=== PATIENT | female | born 1960 | race Caucasian/White ===

== ENCOUNTER → 2018-05-06 07:16 | Outpatient (CLI) | payer OTHER, SELFPAY ==
[2018-05-06 10:15] LABS: BUN Creatinine Ratio 18.6 (6-22); Blood Urea Nitrogen 13 mg/dL (7-17); Carbon Dioxide 28 mmol/L (22-32); Chloride 103 mmol/L (98-107); Estimated Glomerular Filt Rate > 60.0 mL/min (>60); Glucose 100 mg/dL (70-100); HEMOLYSIS < 15 (0-50); Sodium 141 mmol/L (137-145)
[2018-05-06 10:20] LABS: Hemoglobin A1C% w Est Avg Glu 5.5 % (4.0-6.0)
== END ==
PROVIDERS: Family Provider Internal Medicine; PCP Internal Medicine; Visit Provider Internal Medicine
DX: R73.9 Hyperglycemia, unspecified (principal)
CPT/HCPCS: 36415; 80048; 83036

== ENCOUNTER → 2018-05-28 16:36 | Outpatient (CLI) | payer OTHER, SELFPAY ==
--- NOTE | 2018-05-28 16:38 | DI.RAD.S_ITS ---
PROCEDURE: XR CHEST 2V INDICATIONS: chest wall pain, right angle of [place] TECHNIQUE: 2 views of the chest were acquired. COMPARISON: [facility], CR, XR CHEST 2 VIEWS, 01/30/2018, 7:16. [facility], CR, CHEST 2 VIEW, 06/25/2011, 10:15. FINDINGS: Surgical changes and devices: Sternotomy wire wires, presumed prior CABG. These are stable over time. Lungs and pleura: No pleural effusions or pneumothorax. Lungs are clear. Mediastinum: Mediastinal contours are normal. Heart size is normal. Bones and chest wall: No suspicious bony abnormalities. Soft tissues appear unremarkable. IMPRESSION: Prior CABG, source of chest pain is not identified. Dictated by: Angel Morales M.D. on 05/29/2018 at 9:45 Approved by: Angel Morales M.D. on 05/29/2018 at 10:35
== END ==
PROVIDERS: Family Provider Internal Medicine; PCP Internal Medicine; Visit Provider Internal Medicine
DX: R07.89 Other chest pain (principal); Z95.1 Presence of aortocoronary bypass graft
CPT/HCPCS: 71046

== ENCOUNTER 2018-07-23 08:04 | Emergency (ER) | payer OTHER, SELFPAY ==
--- NOTE | 2018-07-23 08:05 | ED_ITS ---
HPI - Abdominal Pain General Chief Complaint: Abdominal Pain Stated Complaint: stomach is killing me. feels like pancreatitis Time Seen by Provider: 07/23/18 08:05 Source: patient Mode of arrival: ambulatory Limitations: no limitations History of Present Illness HPI narrative: patient is a 58-year-old female here for evaluation of epigastric pain. Patient states that has been going on for the past 2 days. Has been constant for the past 2 days. States that it is worse with walking around and somewhat worse with eating. Not worse with palpation. She has had a history of pancreatitis in the past. She states that during her last episode of pancreatitis she did have her gallbladder removed. She states that this is in a slightly different location than her previous history of pancreatitis but she states it feels much like her previous episode. Denies alcohol use. Denies chest pain. Denies shortness of breath. Has not tried anything for this prior to arrival. Related Data Home Medications Medication Instructions Recorded Confirmed ACETAMINOPHEN 325 mg PO Q4HP #0 10/08/12 07/23/18 aspirin 81 mg PO DAILY 07/23/18 07/23/18 Previous Rx's Medication Instructions Recorded atorvastatin 40 mg PO QDAY #90 tab 04/17/17 metoprolol succinate [Toprol XL] 25 mg PO QDAY #90 ter 11/24/17 valsartan [Diovan] 80 mg PO QDAY #90 tab 12/30/17 omeprazole 20 mg capsule,delayed 20 mg PO DAILY #90 cap 02/16/18 release losartan 50 mg tablet 50 mg PO DAILY #30 tab 05/12/18 Allergies Allergy/AdvReac Type Severity Reaction Status Date / Time pollen extracts Allergy Unknown rash Verified 07/23/18 08:10 [POLLEN EXTRACTS] around eyelids. Iodinated Contrast- Oral and Allergy Verified 07/23/18 10:24 IV Dye erythromycin base AdvReac Intermediate gi upset Verified 07/23/18 08:10 [ERYTHROMYCIN BASE] etodolac [ETODOLAC] AdvReac Intermediate welts Verified 07/23/18 08:10 enalapril [ENALAPRIL] AdvReac Mild Verified 07/23/18 08:10 Review of Systems Constitutional Denies fever(s) Cardiovascular Denies chest pain and Denies dyspnea Respiratory Denies dyspnea Gastrointestinal Gastrointestinal: Reports abdominal pain, Denies change in bowel habits, Denies constipation, Denies diarrhea, Denies nausea and Denies vomiting Genitourinary Denies dysuria Musculoskeletal Denies myalgias and Denies arthralgias Integumentary/Breasts Denies rash Hematologic/Lymphatic Denies easy bleeding PFS Medical History Essential hypertension (Chronic 06/13/11) Coronary artery disease involving shawnee coronary artery of shawnee heart without angina pectoris (Chronic 10/06/15) Impaired glucose tolerance (Chronic) Obstructive sleep apnea (Chronic) Rosacea (Chronic) Chronic back pain (Chronic 1993) History of two vessel coronary artery bypass graft (Inactive 12/28/15) Moderate single current episode of major depressive disorder (Chronic 02/20/16) Body mass index (BMI) of 40.1 to 44.9 in adult (Chronic 04/17/17) Chicken pox (Resolved) Cubital tunnel syndrome (Resolved 2008) Hemorrhoids (Resolved 1983) History of recurrent ear infection (Resolved ~1964) Measles (Resolved) Menopause (Resolved 2009) Painful menstrual periods (Resolved 1984) Polyp of gallbladder (Resolved) Recurrent sinusitis (Resolved 1977) Ruptured tympanic membrane (Resolved 1980) Surgical History Anesthesia (Resolved) History of angioplasty (Resolved 10/03/15) History of shoulder surgery (Resolved 1998) History of shoulder surgery (Resolved 2004) History of tonsillectomy (Resolved 1969) S/P cubital tunnel release (Resolved 2008) Status post cholecystectomy (Resolved 2016) Status post coronary artery bypass graft (Resolved 10/2015) Status post tubal ligation (Resolved 1988) Family History Brother Age: 60 Hypertension High cholesterol Grandfather Colon cancer Grandmother Heart disease Hypertension Kidney failure Mother Age: 74 Family history of colon cancer Hypertension Arthritis Frail elderly Sister Age: 57 Hypertension Family/Other Ovarian cancer Father COPD (chronic obstructive pulmonary disease) Social History marital status: number of children: 3 household members: spouse lives independently: Yes caregiver/support person: No housing: house pets and animals: Yes education level: college ([employer].) occupational status: employed (E[employer].) current occupational exposures/hazards: No vidal/denominational: Evangelical travel history: recent ([place]) leisure activities: art (Crafting) and other (Sewing, gardening, camping) Smoking Status: Former smoker Tobacco: How many years used: 35 Smokeless tobacco user: other (Cigarettes) quit status: quit date established (2015) second hand exposure: No alcohol intake: current (Occasional, Social) substance use type: does not use Exam Initial Vital Signs Initial Vital Signs: Vital Signs Temperature 97.5 F L 07/23/18 08:11 Pulse Rate 88 07/23/18 08:11 Respiratory Rate 16 07/23/18 08:11 Blood Pressure 152/67 H 07/23/18 08:11 Pulse Oximetry 96 07/23/18 08:11 Const General: cooperative, well developed, well groomed and No acute distress Orientation: alert, awake and oriented x3 HENMT Head: normal to inspection and normocephalic Chest Chest: normal inspection of the chest Other: Well-healed midline surgical scar consistent with her stated history of coronary artery bypass graft Resp Effort & Inspection: normal respiratory effort Auscultation: clear to auscultation bilaterally Cardio Rate: regular rate Rhythm: regular rhythm Pulses: radial pulses present GI Inspection: non-distended Palpation: soft, No firm, No guarding, No rigid and tender ( epigastric region) Skin Lesions: no lesions Rashes: no rashes Neuro General: alert, awake and oriented x3 Speech: speech normal Extrem General: normal to inspection and capillary refill normal Psych Appearance: grossly normal and well kempt Course Orders Ordered: ED Orders 07/23/18 08:14 EKG-12 Lead Stat 07/23/18 08:30 Complete Blood Count AUTO DIFF Stat Comprehensive Metabolic Panel Stat Lipase Stat Troponin I Stat 07/23/18 09:37 CT abdomen pelvis wo con Stat Discontinued Medications Acetaminophen (Tylenol) 650 mg PO NOW ONE Stop: 07/23/18 08:41 Last Admin: 07/23/18 08:48 Dose: 650 mg Sodium Chloride (Normal Saline 0.9%) 1,000 mls @ 1,000 mls/hr IV BOLUS ONE Stop: 07/23/18 09:04 Last Admin: 07/23/18 08:48 Dose: 1,000 mls/hr Vital Signs - 8 hr 07/23/18 08:11 07/23/18 08:43 Temperature 97.5 F L Pulse Rate 88 80 Respiratory Rate 16 16 Blood Pressure 152/67 H Blood Pressure [Left Arm] 134/75 Pulse Oximetry 96 92 MDM - Abdominal Pain Lab Data Attestation: I reviewed the patient's lab results. Result diagrams: 07/23/18 08:30 07/23/18 08:30 Lab Results 07/23/18 07/23/18 Range/Units 08:30 08:30 WBC 8.8 (4.5-11.0) X10^3/uL RBC 5.24 H (4.0-5.2) X10^6/uL Hgb 14.9 (12.0-16.0) g/dL Hct 43.5 (36-46) % MCV 82.9 (80-100) fL MCH 28.5 (26-34) PG MCHC 34.4 (30-36) % RDW 14.0 (11.6-14.8) % Plt Count 261 (150-400) X10^3/uL Neut % (Auto) 71.6 (50-75) % Lymph % (Auto) 20.0 L (25-40) % [place] % (Auto) 5.5 (3-14) % Eos % (Auto) 1.6 L (2-4) % Baso % (Auto) 1.3 (0-2) % Neut # (Auto) 6300 H (7764-3676) /uL Sodium 144 (137-145) mmol/L Potassium 4.1 (3.4-5.1) mmol/L Chloride 104 (98-107) mmol/L Carbon Dioxide 29 (22-32) mmol/L BUN 14 (7-17) mg/dL Creatinine 0.70 (0.52-1.04) mg/dL Estimated GFR > 60.0 (>60) mL/min BUN/Creatinine Ratio 20.0 (6-22) Glucose 108 H (70-100) mg/dL Calcium 9.3 (8.4-10.2) mg/dL Total Bilirubin 0.4 (0.2-1.3) mg/dL AST 22 (14-36) IU/L ALT 30 (9-52) IU/L Alkaline Phosphatase 96 (38-126) U/L Troponin I < 0.012 (0.01-0.034) ng/mL Total Protein 7.1 (6.3-8.2) g/dL Albumin 4.1 (3.5-5.0) g/dL Globulin 3.0 (1.7-4.1) g/dL Albumin/Globulin Ratio 1.4 (1.0-2.8) Lipase 132 (23-300) U/L Imaging Data CT scan - abdomen: Radiologist's impression: PROCEDURE: CT ABDOMEN PELVIS WO CON INDICATIONS: epigastric pain TECHNIQUE: Noncontrast 5 mm thick sections acquired from the diaphragms to the symphysis. 5 mm coronal and sagittal reformats were then performed. For radiation dose reduction, the following was used: automated exposure control, adjustment of mA and/or kV according to patient size. COMPARISON: None. FINDINGS: Image quality: Reduced by absence of both oral and intravenous contrast. ABDOMEN: Lung bases: Lung bases are clear. Heart size is normal. Solid organs: Liver is normal in size. Gallbladder is not seen and may have been previously resected. Pancreas is normal in contours. Spleen is normal in size. No adrenal nodules. Kidneys are normal in size, without hydronephrosis or nephrolithiasis. Peritoneum and bowel: Unenhanced bowel loops demonstrate normal wall thickness and caliber. No free fluid or air. Nodes and vessels: No retroperitoneal or mesenteric adenopathy by size criteria. Aorta and inferior vena cava are normal in caliber. Miscellaneous: No ventral hernias. PELVIS: Genitourinary: Bladder wall thickness is normal. Miscellaneous: No inguinal hernias or adenopathy. Bones: No suspicious bony lesions. No vertebral body compression fractures. IMPRESSION: The source of reported epigastric pain is not identified. No inflammation in this area is found. The gallbladder is not visualized, and may have been previously resected although metallic surgical clips at the gallbladder fossa area are not seen. Dictated by: Angel Morales M.D. on 07/23/2018 at 9:52 Approved by: Angel Morales M.D. on 07/23/2018 at 9:53 ECG Data Attestation: I personally reviewed and interpreted this ECG as follows: Prior ECG tracings: not available for review Interpretation: sinus rhythm ventricular rate 80 for normal axis Normal QRS Will QTC No ST T wave changes MDM Narrative Medical decision making narrative: Patient has a normal EKG. Symptoms that have been constant for 2 days and a negative troponin. Doubt ACS. CT scan of the abdomen unremarkable. Lipase was unremarkable. Patient does not have a gallbladder. She did not want a GI cocktail here in the emergency department. She stated that when she was in the CT scanner when she raises her arms above her head it did reproduce the symptoms when her arms were down the symptoms seemed to improve. She also stated that the symptoms worsened this morning when she took her pills and also when she took Tylenol here in the ER. I do suspect a GI etiology based on these symptoms. She is currently on Prilosec. We did discuss that she could start taking Tums /Maalox by at least 45 min from her Prilosec if needed. She does have a follow-up with her primary care doctor already scheduled for next month. She was given return precautions. She expressed understanding and agreement with plan. Discharge Plan Departure Patient Disposition: Home Clinical Impression: Abdominal pain Instructions: DI for Abdominal Pain-Adult Activity Restrictions/Additional Instructions: continue taking your medications likely discussed. I would recommend you start taking Tums /Maalox like we discussed by at least 45 min from the Prilosec. Return to the emergency department for any new or worsening symptoms Prescriptions: No Action ACETAMINOPHEN 325 mg PO Q4HP Qty: 0 RF: 0 atorvastatin 40 MG tablet 40 mg PO QDAY Qty: 90 RF: 3 metoprolol succinate [Toprol XL] 25 MG tablet extended release 24 hr 25 mg PO QDAY Qty: 90 RF: 3 valsartan [Diovan] 80 MG tablet 80 mg PO QDAY Qty: 90 RF: 3 omeprazole 20 mg capsule,delayed release(DR/EC) 20 mg PO DAILY Qty: 90 RF: 3 losartan 50 mg tablet 50 mg PO DAILY Qty: 30 RF: 3 aspirin 81 mg Tablet,Delayed Release (Dr/Ec) 81 mg PO DAILY RF: 0
[2018-07-23 08:11] VITALS: BP 152/67; PULSE 88; RESP 16; TEMP 36.4; O2SAT 96; BMI 39.1
[2018-07-23 08:43] VITALS: BP 134/75; PULSE 80; RESP 16; O2SAT 92
--- NOTE | 2018-07-23 08:45 | PC.NURSE ---
pt reports, recovering from right shoulder strained a week ago, developed right rib area pain for 2 days, hard to breath due to pain, felt heavy, like rocks, pain radiating between her shoulder blade
[2018-07-23 08:47] LABS: Add Manual Diff / Slide Review NO; Basophils Percent Auto 1.3 % (0-2); Eosinophils Percent Auto 1.6 % (2-4); Hematocrit 43.5 % (36-46); Hemoglobin 14.9 g/dL (12.0-16.0); Mean Corpuscular HGB Conc 34.4 % (30-36); Mean Corpuscular Hemoglobin 28.5 PG (26-34); Mean Corpuscular Volume 82.9 fL (80-100); Monocytes Percent Auto 5.5 % (3-14); Neutrophils Absolute Auto 6300 /uL (3000-5900); Neutrophils Percent Auto 71.6 % (50-75); Platelet Count 261 X10^3/uL (150-400); Red Blood Cell Count 5.24 X10^6/uL (4.0-5.2); White Blood Cell Count 8.8 X10^3/uL (4.5-11.0)
[2018-07-23] MEDS: ACETAMINOPHEN 325 MG TABLET 650 MG PO (08:48)
[2018-07-23] MEDS: SODIUM CHLORIDE 0.9% 1,000 ML 1000 ML IV (08:48)
[2018-07-23 08:57] LABS: Alanine Aminotransferase 30 IU/L (9-52); Albumin 4.1 g/dL (3.5-5.0); Albumin Globulin Ratio 1.4 (1.0-2.8); Alkaline Phosphatase 96 U/L (38-126); Aspartate Aminotransferase 22 IU/L (14-36); Bilirubin Total 0.4 mg/dL (0.2-1.3); Blood Urea Nitrogen 14 mg/dL (7-17); Calcium 9.3 mg/dL (8.4-10.2); Carbon Dioxide 29 mmol/L (22-32); Chloride 104 mmol/L (98-107); Estimated Glomerular Filt Rate > 60.0 mL/min (>60); Glucose 108 mg/dL (70-100); HEMOLYSIS < 15 (0-50); Lipase 132 U/L (23-300); Potassium 4.1 mmol/L (3.4-5.1); Sodium 144 mmol/L (137-145); Total Protein 7.1 g/dL (6.3-8.2)
[2018-07-23 09:00] VITALS: BP 122/67; PULSE 74; RESP 16; O2SAT 96
[2018-07-23 09:10] LABS: Troponin I < 0.012 ng/mL (0.01-0.034)
--- NOTE | 2018-07-23 09:37 | DI.CT.S_ITS ---
PROCEDURE: CT ABDOMEN PELVIS WO CON INDICATIONS: epigastric pain TECHNIQUE: Noncontrast 5 mm thick sections acquired from the diaphragms to the symphysis. 5 mm coronal and sagittal reformats were then performed. For radiation dose reduction, the following was used: automated exposure control, adjustment of mA and/or kV according to patient size. COMPARISON: None. FINDINGS: Image quality: Reduced by absence of both oral and intravenous contrast. ABDOMEN: Lung bases: Lung bases are clear. Heart size is normal. Solid organs: Liver is normal in size. Gallbladder is not seen and may have been previously resected. Pancreas is normal in contours. Spleen is normal in size. No adrenal nodules. Kidneys are normal in size, without hydronephrosis or nephrolithiasis. Peritoneum and bowel: Unenhanced bowel loops demonstrate normal wall thickness and caliber. No free fluid or air. Nodes and vessels: No retroperitoneal or mesenteric adenopathy by size criteria. Aorta and inferior vena cava are normal in caliber. Miscellaneous: No ventral hernias. PELVIS: Genitourinary: Bladder wall thickness is normal. Miscellaneous: No inguinal hernias or adenopathy. Bones: No suspicious bony lesions. No vertebral body compression fractures. IMPRESSION: The source of reported epigastric pain is not identified. No inflammation in this area is found. The gallbladder is not visualized, and may have been previously resected although metallic surgical clips at the gallbladder fossa area are not seen. Dictated by: Angel Morales M.D. on 07/23/2018 at 9:52 Approved by: Angel Morales M.D. on 07/23/2018 at 9:53
--- NOTE | 2018-07-23 10:04 | PC.NURSE ---
pt reports, pain worsen with movement.
[2018-07-23 10:45] VITALS: BP 117/88; PULSE 69; RESP 16; O2SAT 96
== END 2018-07-23 10:58 | disposition home or self-care (01) ==
PROVIDERS: Emergency Provider Emergency Medicine; PCP Internal Medicine
DX: R10.9 Unspecified abdominal pain (principal)
CPT/HCPCS: 36591; 74176; 80053; 83690; 84484; 85025; 93005; 93010; 96360; 96361; 99283; 99285

== ENCOUNTER → 2018-08-12 06:58 | Outpatient (CLI) | payer OTHER, SELFPAY ==
[2018-08-12 09:46] LABS: Cholesterol 138 mg/dL (140-199); HDL Cholesterol 35 mg/dL (40-60); Hemoglobin A1C% w Est Avg Glu 5.4 % (4.0-6.0); LDL Cholesterol Calculated 75 mg/dL (<100); Triglycerides 142 mg/dL (35-150)
== END ==
PROVIDERS: PCP Internal Medicine; Visit Provider Internal Medicine
DX: I25.10 Atherosclerotic heart disease of native coronary artery without angina pectoris (principal); R73.02 Impaired glucose tolerance (oral)
CPT/HCPCS: 36415; 80061; 83036

== ENCOUNTER → 2019-04-09 09:15 | Outpatient (CLI) | payer OTHER, SELFPAY ==
--- NOTE | 2019-04-09 09:18 | DI.RAD.S_ITS ---
PROCEDURE: FL BARIUM SWALLOW INDICATIONS: chest pain/esophageal COMPARISON: None. FINDINGS: Function: There is normal esophageal peristalsis. No elicited gastroesophageal reflux. There is normal transit of a calibrated barium tablet through the esophagus into the stomach. Morphology: Air-contrast images demonstrate normal mucosal morphology. Single contrast views show no esophageal strictures, extrinsic mass effects, or diverticula. Limited images of the stomach demonstrate normal appearance. IMPRESSION: Negative barium swallow. Dictated by: Antony Mello M.D. on 04/09/2019 at 18:25 Approved by: Antony Mello M.D. on 04/09/2019 at 18:33
== END ==
PROVIDERS: PCP Internal Medicine; Visit Provider Internal Medicine
DX: R07.9 Chest pain, unspecified (principal); K22.4 Dyskinesia of esophagus
CPT/HCPCS: 74220

== ENCOUNTER → 2019-10-21 15:29 | Outpatient (CLI) | payer OTHER, SELFPAY | PROVIDERS: PCP Internal Medicine; Visit Provider Internal Medicine | DX: R30.0 Dysuria (principal) | CPT/HCPCS: 87077; 87086; 87186 ==

== ENCOUNTER → 2020-03-22 07:55 | Outpatient (CLI) | payer OTHER, SELFPAY ==
[2020-03-22 09:56] LABS: Alanine Aminotransferase 21 IU/L (<35); Albumin 3.6 g/dL (3.5-5.0); Albumin Globulin Ratio 1.4 (1.0-2.8); Alkaline Phosphatase 89 U/L (38-126); Aspartate Aminotransferase 23 IU/L (14-36); BUN Creatinine Ratio 18.3 (6-22); Bilirubin Total 0.6 mg/dL (0.2-1.3); Blood Urea Nitrogen 13 mg/dL (7-17); Carbon Dioxide 26 mmol/L (22-32); Chloride 107 mmol/L (98-107); Cholesterol 121 mg/dL (140-199); Estimated Glomerular Filt Rate > 60.0 mL/min (>60); Globulin 2.5 g/dL (1.7-4.1); Glucose 101 mg/dL (80-110); HDL Cholesterol 40 mg/dL (40-60); HEMOLYSIS < 15 (0-50); LDL Cholesterol Calculated 54 mg/dL (<100); Potassium 4.2 mmol/L (3.4-5.1); Sodium 139 mmol/L (137-145); Total Protein 6.1 g/dL (6.3-8.2); Triglycerides 135 mg/dL (35-150)
== END ==
PROVIDERS: PCP Internal Medicine; Referring Provider Internal Medicine; Visit Provider Internal Medicine
DX: I10 Essential (primary) hypertension (principal); I25.10 Atherosclerotic heart disease of native coronary artery without angina pectoris
CPT/HCPCS: 36415; 80053; 80061

== ENCOUNTER → 2021-02-28 07:43 | Outpatient (CLI) | payer OTHER, SELFPAY ==
[2021-02-28 08:31] LABS: Hemoglobin A1C% w Est Avg Glu 5.5 % (4.0-6.0)
[2021-02-28 08:51] LABS: Alanine Aminotransferase 28 IU/L (<35); Albumin 3.4 g/dL (3.5-5.0); Albumin Globulin Ratio 1.3 (1.0-2.8); Alkaline Phosphatase 94 U/L (38-126); Aspartate Aminotransferase 26 IU/L (14-36); BUN Creatinine Ratio 19.4 (6-22); Bilirubin Total 0.4 mg/dL (0.2-1.3); Blood Urea Nitrogen 14 mg/dL (7-17); Calcium 8.8 mg/dL (8.4-10.2); Carbon Dioxide 27 mmol/L (22-32); Chloride 105 mmol/L (98-107); Cholesterol 210 mg/dL (140-199); Estimated Glomerular Filt Rate > 60.0 mL/min (>60); Globulin 2.7 g/dL (1.7-4.1); Glucose 113 mg/dL (80-110); HDL Cholesterol 40 mg/dL (40-60); HEMOLYSIS < 15 (0-50); LDL Cholesterol Calculated 136 mg/dL (<100); Potassium 4.3 mmol/L (3.4-5.1); Sodium 138 mmol/L (137-145); Total Protein 6.1 g/dL (6.3-8.2); Triglycerides 171 mg/dL (35-150)
== END ==
PROVIDERS: PCP Internal Medicine; Referring Provider Internal Medicine; Visit Provider Internal Medicine
DX: I10 Essential (primary) hypertension (principal); I25.10 Atherosclerotic heart disease of native coronary artery without angina pectoris; R73.02 Impaired glucose tolerance (oral)
CPT/HCPCS: 36415; 80053; 80061; 83036

== ENCOUNTER → 2021-04-05 16:32 | Outpatient (CLI) | payer OTHER, SELFPAY ==
[2021-04-05 18:12] LABS: Erythrocyte Sedimentation Rate 37 MM/HR (0-20)
[2021-04-05 18:21] LABS: HEMOLYSIS < 15 (0-50)
[2021-04-05 18:26] LABS: Alanine Aminotransferase 29 IU/L (<35); Albumin 3.9 g/dL (3.5-5.0); Albumin Globulin Ratio 1.3 (1.0-2.8); Alkaline Phosphatase 106 U/L (38-126); Aspartate Aminotransferase 29 IU/L (14-36); BUN Creatinine Ratio 19.2 (6-22); Bilirubin Total 0.4 mg/dL (0.2-1.3); Blood Urea Nitrogen 15 mg/dL (7-17); Calcium 9.2 mg/dL (8.4-10.2); Carbon Dioxide 26 mmol/L (22-32); Chloride 106 mmol/L (98-107); Cholesterol 220 mg/dL (140-199); Estimated Glomerular Filt Rate > 60.0 mL/min (>60); Glucose 98 mg/dL (80-110); HDL Cholesterol 34 mg/dL (40-60); LDL Cholesterol Calculated 150 mg/dL (<100); Potassium 4.2 mmol/L (3.4-5.1); Sodium 139 mmol/L (137-145); Total Protein 6.9 g/dL (6.3-8.2); Triglycerides 179 mg/dL (35-150); Uric Acid 5.3 mg/dL (2.5-6.2)
[2021-04-05 19:05] LABS: C-Reactive Protein Quant 2.3 mg/dL (<1.0)
[2021-04-05 20:47] LABS: Rheumatoid Factor < 8.6 IU/mL (<12.0)
[2021-04-06 19:36] LABS: SS A Ro Sjogrens Antibody < 0.2 AI (0.0-0.9); SS B La Sjogrens Antibody < 0.2 AI (0.0-0.9)
[2021-04-07 17:23] LABS: ANA Screen, IFA Negative (.)
[2021-04-09 22:42] LABS: CCP Antibodies IgG/IgA 6 units (0-19)
== END ==
PROVIDERS: PCP Internal Medicine; Referring Provider Physical Medicine & Rehabilitation; Visit Provider Physical Medicine & Rehabilitation
DX: M25.50 Pain in unspecified joint (principal); E78.2 Mixed hyperlipidemia; I10 Essential (primary) hypertension; I25.10 Atherosclerotic heart disease of native coronary artery without angina pectoris
CPT/HCPCS: 36415; 80053; 80061; 84550; 85651; 86038; 86140; 86200; 86235; 86430; 86788; 86789

== ENCOUNTER → 2021-09-06 07:51 | Outpatient (CLI) | payer OTHER, SELFPAY ==
[2021-09-06 08:51] LABS: Alanine Aminotransferase 22 IU/L (<35); Albumin 3.7 g/dL (3.5-5.0); Albumin Globulin Ratio 1.5 (1.0-2.8); Alkaline Phosphatase 100 U/L (38-126); Aspartate Aminotransferase 22 IU/L (14-36); BUN Creatinine Ratio 18.1 (6-22); Bilirubin Total 0.4 mg/dL (0.2-1.3); Blood Urea Nitrogen 15 mg/dL (7-17); Calcium 9.1 mg/dL (8.4-10.2); Carbon Dioxide 29 mmol/L (22-32); Chloride 102 mmol/L (98-107); Cholesterol 170 mg/dL (140-199); Estimated Glomerular Filt Rate > 60.0 mL/min (>60); Globulin 2.5 g/dL (1.7-4.1); Glucose 113 mg/dL (80-110); HDL Cholesterol 43 mg/dL (40-60); HEMOLYSIS < 15 (0-50); LDL Cholesterol Calculated 103 mg/dL (<100); Potassium 4.4 mmol/L (3.4-5.1); Sodium 139 mmol/L (137-145); Total Protein 6.2 g/dL (6.3-8.2); Triglycerides 121 mg/dL (35-150)
== END ==
PROVIDERS: PCP Internal Medicine; Referring Provider Internal Medicine; Visit Provider Internal Medicine
DX: E78.2 Mixed hyperlipidemia (principal); I10 Essential (primary) hypertension
CPT/HCPCS: 36415; 80053; 80061